=== PATIENT | male | born 1960 | race American Indian/Alaskan Native ===

== ENCOUNTER 2018-01-23 16:45 | Emergency (ER) | payer SELFPAY ==
[2018-01-23 17:02] VITALS: BP 163/110
--- NOTE | 2018-01-23 17:38 | XRay Report ---
FINAL REPORT PROCEDURE: XR CHEST ROUTINE 2V TECHNIQUE: PA and lateral chest radiographs were obtained. CPT 10609 HISTORY: Shortness of breath COMPARISON: No prior studies are available for comparison. FINDINGS: Heart: Normal. Mediastinum/Vessels: Normal. Lungs/Pleural space: Normal. Bony thorax: No acute osseous abnormality. Other: IMPRESSION: Normal examination.
[2018-01-23 17:58] LABS: Basophils # (Auto) 0.1 K/mm3 (0.0-0.1); Eosinophils # (Auto) 0.1 K/mm3 (0.0-0.4); Eosinophils % (Auto) 1.5 % (0.0-4.3); Hematocrit 50.6 % (35.5-45.6); Hemoglobin 17.3 gm/dl (11.8-15.2); Lymphocytes % (Auto) 14.6 % (13.4-35.0); Mean Corpuscular HGB Conc 34 % (32-34); Mean Corpuscular Hemoglobin 32 pg (28-32); Mean Corpuscular Volume 93 fl (84-94); Monocytes # (Auto) 0.6 K/mm3 (0.0-0.8); Monocytes % (Auto) 8.4 % (0.0-7.3); Platelet Count 285 K/mm3 (140-440); Red Blood Count 5.45 M/mm3 (3.65-5.03); Red Cell Distribution Width 13.6 % (13.2-15.2)
[2018-01-23 18:16] LABS: BUN/Creatinine Ratio 9; Blood Urea Nitrogen 10 mg/dL (9-20); Calcium 9.3 mg/dL (8.4-10.2); Hemolysis Index 4
== END 2018-01-23 17:36 ==
LOC: ED 16:45
DX: R07.9 Chest pain, unspecified (principal); Z53.21 Procedure and treatment not carried out due to patient leaving prior to being seen by health care provider
CPT/HCPCS: 36415; 71046; 80048; 84484; 85025; 93005; 93010

== ENCOUNTER 2018-06-21 16:00 | Inpatient (IN) | payer SELFPAY ==
[2018-06-21] MEDS ORDERED: ASPIRIN PO ONE (16:25)
[2018-06-21] MEDS ORDERED: MORPHINE IV ONE ×2 (17:24→19:33)
[2018-06-21] MEDS ORDERED: SOLU-Medrol IV ONE (17:24)
[2018-06-21 17:37] LABS: Basophils # (Auto) 0.1 K/mm3 (0.0-0.1); Basophils % (Auto) 1.1 % (0.0-1.8); Eosinophils # (Auto) 0.1 K/mm3 (0.0-0.4); Eosinophils % (Auto) 1.9 % (0.0-4.3); Hematocrit 47.6 % (35.5-45.6); Hemoglobin 15.8 gm/dl (11.8-15.2); Lymphocytes # (Auto) 1.4 K/mm3 (1.2-5.4); Mean Corpuscular HGB Conc 33 % (32-34); Mean Corpuscular Hemoglobin 31 pg (28-32); Mean Corpuscular Volume 94 fl (84-94); Monocytes # (Auto) 0.7 K/mm3 (0.0-0.8); Monocytes % (Auto) 11.3 % (0.0-7.3); Platelet Count 272 K/mm3 (140-440); Red Blood Count 5.07 M/mm3 (3.65-5.03); Red Cell Distribution Width 14.2 % (13.2-15.2)
[2018-06-21 17:43] LABS: INR 0.85 (0.87-1.13)
[2018-06-21 17:44] LABS: Partial Thromboplastin Time 24.9 Sec. (24.2-36.6)
[2018-06-21 17:51] LABS: BUN/Creatinine Ratio 11; Blood Urea Nitrogen 14 mg/dL (9-20); Calcium 9.3 mg/dL (8.4-10.2); Hemolysis Index 8
--- NOTE | 2018-06-21 18:38 | XRay Report ---
FINAL REPORT PROCEDURE: Chest. TECHNIQUE: PA and lateral views. HISTORY: Shortness of breath, chest pain. COMPARISON: Chest 01/23/2018. FINDINGS: The heart size is normal. There is mild tortuosity of the thoracic aorta. There is minimal opacity in the left costophrenic angle. This may represent some subsegmental atelectasis. The lungs are otherwise clear. The soft tissues are unremarkable. The regional skeleton appears intact. IMPRESSION: No significant abnormality.
--- NOTE | 2018-06-21 19:19 | Cat Scan Report ---
FINAL REPORT PROCEDURE: CT angiogram chest with contrast. TECHNIQUE: Computerized tomographic angiography of the chest was performed after the IV injection of iodinated nonionic contrast including image processing. The image data was postprocessed using 2-dimensional multiplanar reformatted (MPR) and 3-dimensional (MIP and/or volume rendered) techniques. HISTORY: Chest pain, shortness of breath. COMPARISON: No prior studies are available for comparison. FINDINGS: The trachea and central bronchi appear normal. There are a few cystic changes in both upper lobes, right worse than left. The lungs are otherwise clear. There are no signs of pneumonia. There are no definite pulmonary nodules. There are no pleural effusions. The thoracic aorta has a normal caliber without evidence of dissection. The pulmonary arteries enhance normally. There is no evidence of pulmonary embolism. There are a few small nonspecific mediastinal lymph nodes. The heart size is normal. The adrenal glands are not enlarged. There is a probable cyst in the upper pole of the left kidney. The thoracic skeleton appears intact. IMPRESSION: No significant abnormality identified.
[2018-06-21] MEDS ORDERED: LASIX IV ONE (19:20)
[2018-06-21] MEDS ORDERED: DUONEB *Not for PRN Use IH ONE (19:20)
[2018-06-21] MEDS ORDERED: LOPRESSOR IV ONE (19:33)
--- NOTE | 2018-06-21 19:33 | Emergency Department Report ---
ED Chest Pain HPI - General Chief Complaint: Chest Pain Stated Complaint: CHEST PAIN SOB Time Seen by Provider: 06/21/18 16:51 Source: patient Mode of arrival: Ambulatory Limitations: No Limitations - History of Present Illness Initial Comments: 58-year-old after an [place] male presents to the emergency department with complaint of a 4 day history of left-sided chest pain and shortness of breath. The shortness of breath has been the worst part of it and it worsens with exertion. The chest pain does radiate across his chest and down to the right arm. Both the pain and shortness of breath is also worse when he lays flat. He has a past mental history of CHF, hypertension, brain aneurysm with surgical repair in 2008 and he has a history of COPD. He uses oxygen intermittently but not around the clock. He is an occasional tobacco smoker but denies any illicit drug use. He does not currently have any primary care physician or claim auditor. He says it has been many years since he had a stress test. 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 He had a workup for some of these symptoms and a community emergency department in [place], yesterday, and he says that they wanted him transferred to a hospital in [place] for further workup but the patient refused and says that he wanted to come closer to home. He did not take anything for his symptoms prior to presentation today. Severity scale (0 -10): 3 - Related Data Home Medications Medication Instructions Recorded Confirmed Last Taken ALPRAZolam [Xanax TAB] 0.25 mg PO TID PRN 02/28/15 02/28/15 Unknown Gabapentin 100 mg PO TID 02/28/15 02/28/15 02/27/15 Previous Rx's Medication Instructions Recorded Last Taken Type HYDROcodone/APAP 5-325 [Ford 1 each PO Q6HR PRN #12 tablet 03/03/15 Unknown Rx 5/325] Metoprolol [Lopressor TAB] 50 mg PO BID #60 tablet 03/03/15 Unknown Rx Prednisone [Prednisone 5 mg (6-Day 5 mg PO .TAPER #1 tab.ds.pk 03/03/15 Unknown Rx Pack, 21 Tabs)] amLODIPine [Norvasc] 10 mg PO DAILY #30 tablet 03/03/15 Unknown Rx hydrALAZINE [Apresoline TAB] 25 mg PO Q8H #90 tab 03/03/15 Unknown Rx Allergies Allergy/AdvReac Type Severity Reaction Status Date / Time clonidine AdvReac Headache Verified 02/28/15 09:50 Heart Score - HEART Score History: Moderately suspicious EKG: Non-specific Age: 45-65 Risk factors: 1-2 risk factors Troponin: < normal limit HEART Score: 4 - Critical Actions Critical Actions: 4-6 pts:12-16.6% risk of adverse cardiac event. Should be admitted ED Review of Systems ROS: Stated complaint: CHEST PAIN SOB Other details as noted in HPI Comment: All other systems reviewed and negative Constitutional: denies: chills, fever Eyes: denies: eye pain, eye discharge, vision change ENT: denies: ear pain, throat pain Respiratory: orthopnea, shortness of breath, SOB with exertion Cardiovascular: chest pain. denies: palpitations Gastrointestinal: denies: abdominal pain, nausea, diarrhea Genitourinary: denies: urgency, dysuria Musculoskeletal: denies: back pain, joint swelling, arthralgia Skin: denies: rash, lesions Neurological: denies: headache, weakness, paresthesias ED Past Medical Hx - Past Medical History Hx Hypertension: Yes Hx Congestive Heart Failure: Yes Hx Diabetes: No Hx Sickle Cell Disease: No Hx Asthma: No Hx COPD: No Hx HIV: No - Surgical History Additional Surgical History: Brain surgery 2008 - Social History Smoking Status: Current Every Day Smoker Substance Use Type: None - Medications Home Medications: Home Medications Medication Instructions Recorded Confirmed Last Taken Type ALPRAZolam [Xanax TAB] 0.25 mg PO TID PRN 02/28/15 02/28/15 Unknown History Gabapentin 100 mg PO TID 02/28/15 02/28/15 02/27/15 History HYDROcodone/APAP 5-325 [Ford 1 each PO Q6HR PRN #12 tablet 03/03/15 Unknown Rx 5/325] Metoprolol [Lopressor TAB] 50 mg PO BID #60 tablet 03/03/15 Unknown Rx Prednisone [Prednisone 5 mg (6-Day 5 mg PO .TAPER #1 tab.ds.pk 03/03/15 Unknown Rx Pack, 21 Tabs)] amLODIPine [Norvasc] 10 mg PO DAILY #30 tablet 03/03/15 Unknown Rx hydrALAZINE [Apresoline TAB] 25 mg PO Q8H #90 tab 03/03/15 Unknown Rx ED Physical Exam - General Limitations: No Limitations ED Course Vital Signs 06/21/18 06/21/18 06/21/18 16:19 16:24 17:44 Temperature 97.9 F Pulse Rate 84 Respiratory 24 22 Rate Blood Pressure 175/119 Blood Pressure 114/90 [Right] O2 Sat by Pulse 99 Oximetry JUJU score - Juju Score Age > 65: (0) No Aspirin use within the Past 7 Days: (0) No 3 or more CAD Risk Factors: (1) Yes 2 or more Angina events in past 24 hrs: (1) Yes Known CAD with more than 50% Stenosis: (0) No Elevated Cardiac Markers: (0) No ST Deviation Greater than 0.5mm: (0) No JUJU Score: 2 ED Medical Decision Making - Lab Data Result diagrams: 06/21/18 16:34 06/21/18 16:34 - EKG Data -: EKG Interpreted by Me EKG shows normal: sinus rhythm, axis (left axis deviation), intervals, QRS complexes (Q waves to the anterior and inferior leads, LVH, left anterior fascicular block), ST-T waves (T-wave inversions to the lateral leads) Rate: normal - EKG Data When compared to previous EKG there are: no significant change Interpretation: unchanged when compared t (01/23/18) - Radiology Data Radiology results: report reviewed, image reviewed interpreted by me: Chest x-ray does not show any acute process. There are no pleural effusions, obvious pneumonia and there is no pneumothorax. PROCEDURE: CT angiogram chest with contrast. TECHNIQUE: Computerized tomographic angiography of the chest was performed after the IV injection of iodinated nonionic contrast including image processing. The image data was postprocessed using 2-dimensional multiplanar reformatted (MPR) and 3-dimensional (MIP and/or volume rendered) techniques. HISTORY: Chest pain, shortness of breath. COMPARISON: No prior studies are available for comparison. FINDINGS: The trachea and central bronchi appear normal. There are a few cystic changes in both upper lobes, right worse than left. The lungs are otherwise clear. There are no signs of pneumonia. There are no definite pulmonary nodules. There are no pleural effusions. The thoracic aorta has a normal caliber without evidence of dissection. The pulmonary arteries enhance normally. There is no evidence of pulmonary embolism. There are a few small nonspecific mediastinal lymph nodes. The heart size is normal. The adrenal glands are not enlarged. There is a probable cyst in the upper pole of the left kidney. The thoracic skeleton appears intact. IMPRESSION: No significant abnormality identified. Transcribed By: MRM Dictated By: MARYANNE SHORE MD Electronically Authenticated By: MARYANNE SHORE MD Signed Date/Time: 06/21/181917 - Medical Decision Making Patient has continued chest discomfort and shortness of breath. He has a BNP greater than 2500. No significant pleural effusion. CT angiography did not show any PE, dissection. It is been a few years since the patient had a stress test. He will be admitted to the hospital for further evaluation and treatment was excepted for admission by the hospitalist, Dr. Rosado. - Differential Diagnosis ND, PE, COPD, CHF Critical Care Time: No Critical care attestation.: If time is entered above; I have spent that time in minutes in the direct care of this critically ill patient, excluding procedure time. ED Disposition Clinical Impression: Acute chest pain Dyspnea Qualifiers: Dyspnea type: shortness of breath Qualified Code(s): R06.02 - Shortness of breath; R06.00 - Dyspnea, unspecified; R06.01 - Orthopnea Hypertension Qualifiers: Hypertension type: essential hypertension Qualified Code(s): I10 - Essential ( primary) hypertension Congestive heart failure Qualifiers: Heart failure type: unspecified Heart failure chronicity: acute on chronic Qualified Code(s): I50.9 - Heart failure, unspecified Disposition: OP ADMIT IP TO THIS HOSP Is pt being admited?: Yes Condition: Fair Instructions: Chest Pain (ED), Hypertension (ED) Referrals: PRIMARY CARE, [Primary Care Provider] - 3-5 Days Time of Disposition: 19:37
--- NOTE | 2018-06-21 21:21 | Cat Scan Report ---
FINAL REPORT PROCEDURE: CT head without contrast. TECHNIQUE: Computerized tomography of the head was performed without contrast material. HISTORY: Headache. COMPARISON: No prior studies are available for comparison. FINDINGS: The ventricles are normal in size. The crowder matter and white matter appear normal. There are no mass lesions. There is no intracranial hemorrhage. There is a metallic stent and a focal mass of metallic density near the foramen magnum. This may represent previous embolization of an aneurysm. Clinical correlation is recommended. The calvarium appears intact. The mastoid air cells and visualized paranasal sinuses are clear. IMPRESSION: No evidence of acute disease. Probable previous embolization procedure.
[2018-06-21] MEDS ORDERED: APRESOLINE IV ONE (22:40)
[2018-06-21] MEDS ORDERED: ZOFRAN IV PRN (23:01)
[2018-06-21] MEDS ORDERED: TYLENOL PO PRN (23:01)
[2018-06-21] MEDS ORDERED: SODIUM CHLORIDE FLUSH SYRINGE 10 ML IV PRN (23:01)
--- NOTE | 2018-06-21 23:08 | Event Note ---
Date: 06/21/18 See dictated history and physical in the reports Chest pain rule out [place] Hypertension
[2018-06-21] MEDS ORDERED: HABITROL TD ONE (23:15)
[2018-06-21] MEDS ORDERED: LOPRESSOR ONE (23:27)
[2018-06-21] MEDS ORDERED: APRESOLINE ONE (23:28)
[2018-06-21] MEDS: XANAX PO PRN (23:32)
--- NOTE | 2018-06-21 23:32 | History and Physical Report ---
CHIEF COMPLAINT: Chest pain for 4 days. HISTORY OF PRESENT ILLNESS: A 58-year-old male with a history of hypertension, presents to the Emergency Room for 4 days of left chest pain and shortness. Shortness of breath is recent and worsens with exertion. Chest pain radiates across his chest to the right arm. No diaphoresis, no palpitations. The patient has COPD and uses oxygen intermittently. The patient is also a smoker. 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 He wants a workup for these symptoms. The patient does not have a salmon gillnet vessel operator or PCP. Exacerbating factor is exertion. Relieving factor is rest. PAST MEDICAL HISTORY: As mentioned, significant for hypertension and congestive heart failure and COPD. PAST SURGICAL HISTORY: Aneurysm surgery in 2008. SOCIAL HISTORY: Current everyday smoker. FAMILY HISTORY: Hypertension. CURRENT MEDICATIONS: Metoprolol 50 mg twice a day, amlodipine 10 mg once a day, alprazolam 0.25 three times a day, and gabapentin 100 mg 3 times a day. REVIEW OF SYSTEMS: Significant for left-sided chest pain of 4 days' duration and shortness of breath of 4 days' duration. Otherwise, review of systems negative. PHYSICAL EXAMINATION: GENERAL: On examination, a middle-aged male, obese, cooperative during examination. VITAL SIGNS: Blood pressure is 169/111 and 178/101, temperature is 98, pulse is 85, and respirations are 16. HEENT: Unremarkable. Pupils are equal and reactive. NECK: Supple, no lymphadenopathy, no thyromegaly. LUNGS: Scattered rhonchi bilaterally. CARDIOVASCULAR: S1, S2 heard. No gallop, no murmur, no rub. Apical impulse in left fifth intercostal space and midclavicular line. ABDOMEN: Soft and benign. No hepatosplenomegaly. No guarding, no rigidity. Hernial orifices are normal. EXTREMITIES: Good pedal pulses. No pedal edema. CENTRAL NERVOUS SYSTEM: Alert and oriented x 4, nonfocal exam. SKIN: Normal. LABORATORY DATA: Significant for a white count of 6100, H and H are 15.8 and 47.6, and platelet count is 272,000. BNP is 2708. Electrolytes are normal. EKG shows sinus rhythm, left anterior fascicular block, left ventricular hypertrophy. Heart rate of 86 per minute. The chest x-ray shows no significant abnormality. CT angiogram does not show any significant abnormality. ASSESSMENT AND PLAN: 1. Chest pain, rule out myocardial infarction, chest pain protocol. 2. Congestive heart failure, new onset. I will get echocardiogram to get the ejection fraction. The patient's shortness of breath may also be due to obesity. 3. Hypertension. Continue metoprolol and amlodipine. Add losartan because of uncontrolled blood pressure. The patient is also hydralazine. Continue the same. 4. Peripheral neuropathy. Continue gabapentin 100 mg 3 times a day. 5. Generalized anxiety disorder. Continue Xanax. 6. Nicotine dependence. Nicoderm patch ordered. 7. Deep venous thrombosis prophylaxis, Lovenox 40 mg subcutaneous daily ordered. JOB# [id number] GIOVANNI/NTS
[2018-06-21] MEDS: APRESOLINE PO SCH (23:33)
[2018-06-21] MEDS ORDERED: XANAX ONE (23:33)
[2018-06-21] MEDS: PERCOCET 5/325 PO PRN (23:33)
[2018-06-21] MEDS: LOPRESSOR PO SCH (23:33)
[2018-06-21] MEDS ORDERED: PERCOCET 5/325 ONE (23:33)
[2018-06-22] MEDS: MORPHINE IV PRN ×4 (03:19→18:04)
[2018-06-22] MEDS: PERCOCET 5/325 PO PRN ×3 (05:55→21:31)
[2018-06-22] MEDS: APRESOLINE PO SCH ×3 (05:56→21:29)
[2018-06-22 06:53] LABS: Basophils % (Auto) 0.2 % (0.0-1.8); Eosinophils % (Auto) 0.1 % (0.0-4.3); Hematocrit 49.5 % (35.5-45.6); Hemoglobin 16.5 gm/dl (11.8-15.2); Lymphocytes # (Auto) 0.4 K/mm3 (1.2-5.4); Lymphocytes % (Auto) 8.8 % (13.4-35.0); Mean Corpuscular HGB Conc 33 % (32-34); Mean Corpuscular Hemoglobin 31 pg (28-32); Mean Corpuscular Volume 94 fl (84-94); Monocytes # (Auto) 0.1 K/mm3 (0.0-0.8); Monocytes % (Auto) 2.1 % (0.0-7.3); Platelet Count 278 K/mm3 (140-440); Red Blood Count 5.27 M/mm3 (3.65-5.03); Red Cell Distribution Width 14.6 % (13.2-15.2)
[2018-06-22 07:21] LABS: Alanine Aminotransferase 27 units/L (7-56); BUN/Creatinine Ratio 16; Blood Urea Nitrogen 19 mg/dL (9-20); Calcium 9.4 mg/dL (8.4-10.2); Hemolysis Index 30
[2018-06-22] MEDS ORDERED: LEXISCAN IV ONE ×2 (08:28→08:29)
[2018-06-22] MEDS: LOPRESSOR PO SCH ×2 (10:18→21:30)
[2018-06-22] MEDS: NORVASC PO SCH (10:18)
[2018-06-22] MEDS: NEURONTIN PO SCH ×3 (10:19→21:29)
[2018-06-22] MEDS: COZAAR PO SCH (10:19)
[2018-06-22] MEDS: PEPCID PO SCH ×2 (10:19→21:29)
[2018-06-22] MEDS: LOVENOX SUB-Q SCH (10:20)
[2018-06-22] MEDS: XANAX PO PRN ×2 (11:49→21:29)
--- NOTE | 2018-06-22 16:15 | Progress Note ---
Assessment and Plan - Patient Problems (1) Acute chest pain Current Visit: Yes Status: Acute Plan to address problem: For Lesisccan (2) Acute systolic heart failure Current Visit: Yes Status: Acute Plan to address problem: IV lasix ECHO (3) COPD exacerbation Current Visit: Yes Status: Acute Plan to address problem: Cont Duonebs Solumedrol and IV levaquin (4) HTN (hypertension) Current Visit: Yes Status: Chronic Qualifiers: Hypertension type: essential hypertension Qualified Code(s): I10 - Essential (primary) hypertension Plan to address problem: Cont antihypertensives (5) Sleep apnea Current Visit: Yes Status: Chronic Qualifiers: Sleep apnea type: unspecified type Qualified Code(s): G47.30 - Sleep apnea , unspecified Plan to address problem: CPAP prn (6) DVT prophylaxis Current Visit: Yes Status: Acute Plan to address problem: on Lovenox Subjective Date of service: 06/22/18 Principal diagnosis: CHF exacerbation and Chest pain Interval history: Sx better Objective - Constitutional Vitals: Vital Signs - 12hr 06/22/18 06/22/18 06/22/18 04:36 05:55 05:56 Temperature 97.2 F L Pulse Rate 62 62 Respiratory 18 20 Rate Blood Pressure 152/96 152/96 Blood Pressure [Right] O2 Sat by Pulse 98 Oximetry 06/22/18 06/22/18 06/22/18 06:55 07:19 07:49 Temperature Pulse Rate Respiratory 20 20 20 Rate Blood Pressure Blood Pressure [Right] O2 Sat by Pulse Oximetry 06/22/18 06/22/18 06/22/18 08:17 10:00 11:36 Temperature 97.9 F 97.9 F Pulse Rate 60 71 69 Respiratory 20 20 Rate Blood Pressure 180/110 Blood Pressure 124/64 [Right] O2 Sat by Pulse 99 92 Oximetry General appearance: Present: mild distress, well-nourished - EENT Eyes: PERRL, EOM intact ENT: hearing intact, clear oral mucosa Ears: bilateral: normal - Neck Neck: supple, normal ROM - Respiratory Respiratory effort: normal Respiratory: bilateral: CTA, diminished, rhonchi - Breasts Breasts: normal - Cardiovascular Heart rate: 78 Rhythm: regular Heart Sounds: Present: S1 & S2. Absent: gallop, rub Extremities: no ischemia, pulses intact, No edema, normal color, Full ROM - Gastrointestinal General gastrointestinal: Present: soft, non-tender, non-distended, normal bowel sounds - Genitourinary Male genitourinary: normal - Integumentary Integumentary: clear, warm, dry - Musculoskeletal Musculoskeletal: 1, strength equal bilaterally - Neurologic Neurologic: moves all extremities - Psychiatric Psychiatric: memory intact, appropriate mood/affect, intact judgment & insight - Labs CBC & Chem 7: 06/22/18 05:30 06/22/18 05:30 Labs: Abnormal lab results 06/21/18 06/21/18 06/21/18 Range/Units 16:34 17:02 17:33 RBC 5.07 H (3.65-5.03) M/mm3 Hgb 15.8 H (11.8-15.2) gm/dl Hct 47.6 H (35.5-45.6) % Lymph % (Auto) (13.4-35.0) % [place] % (Auto) 11.3 H (0.0-7.3) % Lymph # (1.2-5.4) K/mm3 Seg Neutrophils % (40.0-70.0) % PT 12.0 L (12.2-14.9) Sec. INR 0.85 L (0.87-1.13) Glucose (75-100) mg/dL NT-Pro-B Natriuret Pep 2708 H (0-900) pg/mL 06/22/18 06/22/18 Range/Units 05:30 05:30 RBC 5.27 H (3.65-5.03) M/mm3 Hgb 16.5 H (11.8-15.2) gm/dl Hct 49.5 H (35.5-45.6) % Lymph % (Auto) 8.8 L (13.4-35.0) % [place] % (Auto) (0.0-7.3) % Lymph # 0.4 L (1.2-5.4) K/mm3 Seg Neutrophils % 88.8 H (40.0-70.0) % PT (12.2-14.9) Sec. INR (0.87-1.13) Glucose 147 H (75-100) mg/dL NT-Pro-B Natriuret Pep (0-900) pg/mL - Imaging and cardiology EKG: report reviewed
[2018-06-22] MEDS: SODIUM CHLORIDE FLUSH SYRINGE 10 ML IV SCH ×2 (16:37→21:32)
[2018-06-22] MEDS ORDERED: DUONEB *Not for PRN Use IH ONE (18:03)
[2018-06-22] MEDS: DILAUDID IV SCH (23:48)
[2018-06-22] MEDS: COLACE PO SCH (23:49)
[2018-06-23] MEDS: MORPHINE IV PRN ×4 (03:24→20:56)
[2018-06-23] MEDS: DILAUDID IV SCH ×4 (05:39→23:50)
[2018-06-23] MEDS: APRESOLINE PO SCH ×3 (05:40→23:53)
[2018-06-23] MEDS: XANAX PO PRN ×2 (05:40→13:45)
[2018-06-23] MEDS: NEURONTIN PO SCH ×3 (09:17→20:58)
[2018-06-23] MEDS: COLACE PO SCH (09:17)
[2018-06-23] MEDS ORDERED: LEXISCAN IV ONE ×2 (10:15)
[2018-06-23] MEDS: NORVASC PO SCH (10:48)
[2018-06-23] MEDS: COZAAR PO SCH (10:50)
[2018-06-23] MEDS: SODIUM CHLORIDE FLUSH SYRINGE 10 ML IV SCH (10:58)
[2018-06-23] MEDS: PEPCID PO SCH ×2 (13:45→23:53)
[2018-06-23] MEDS: LOVENOX SUB-Q SCH (13:46)
[2018-06-23] MEDS: LOPRESSOR PO SCH (13:51)
--- NOTE | 2018-06-23 14:20 | Consultation ---
History of Present Illness Consult date: 06/23/18 Requesting physician: NILSA GONZALEZ Consult reason: congestive heart failure History of present illness: The pt is a 58 YO male with a past medical history significant for HTN, HF, COPD requiring home O2, suspected KARL, brain aneurysm with surgical repair ( coiling) in 2008. He has been seen by our practice on prior hospitalizations but has admittedly not been compliant with OP follow up due to insurance issues. He presented with complaints of progressively worsening SOB, KNIGHT, wheezing and chest pain for 1 week prior to arrival. He describes his chest pain as an intermittent, left-sided pressure which radiates down his right arm. 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 He had a workup for some of these symptoms and a community emergency department in [place] a few days ago and he says that they wanted him transferred to a hospital in [place] for further workup but the patient refused and says that he wanted to come closer to home. He underwent lexiscan MPI stress test this AM which was equivocal for mild lateral wall ischemia, EF 29%. He also had echo done yesterday which showed EF 30-35%, LV mild to mod dilated, mod LVH, LA mild to mod dilated, right heart chambers mildly dilated, trace-mild TR, RVSP 30mmHg. Review of [place] records reveals that pt underwent LHC in 05/2015 which showed normal coronaries and normal LV function. He underwent echo in 02/2018 which showed EF 50%, grade 2 diastolic dysfunction, trace MVR. Past History Past Medical History: COPD, heart failure, hypertension, other (brain aneurysm with surgical repair (coiling) in 2008; suspected KARL) Social history: smoking (former). denies: alcohol abuse, prescription drug abuse Medications and Allergies Allergies Allergy/AdvReac Type Severity Reaction Status Date / Time clonidine AdvReac Headache Verified 02/28/15 09:50 Home Medications Medication Instructions Recorded Confirmed Last Taken Type ALPRAZolam [Xanax TAB] 0.25 mg PO TID PRN 02/28/15 06/22/18 Unknown History Gabapentin 200 mg PO TID 02/28/15 06/22/18 02/27/15 History hydrALAZINE [Apresoline TAB] 25 mg PO Q8H #90 tab 03/03/15 06/21/18 Unknown Rx Plavix 75 mg PO DAILY 06/21/18 06/22/18 06/19/18 08:00 History Aspirin [Aspirin BABY CHEW TAB] 81 mg PO QDAY 06/22/18 06/22/18 Unknown History Atorvastatin Calcium [Lipitor] 20 mg PO DAILY 06/22/18 06/22/18 Unknown History Furosemide [Lasix] 20 mg PO DAILY 06/22/18 06/22/18 Unknown History Potassium Chloride [Klor-Con] 20 meq PO DAILY 06/22/18 06/22/18 Unknown History Active Meds: Active Medications Acetaminophen (Tylenol) 650 mg PO Q4H PRN PRN Reason: Pain MILD(1-3)/Fever >100.5/RODRIGEZ Alprazolam (Xanax) 0.25 mg PO TID PRN PRN Reason: Anxiety Last Admin: 06/23/18 13:45 Dose: 0.25 mg Amlodipine Besylate (Norvasc) 10 mg PO DAILY [facility] Last Admin: 06/23/18 10:48 Dose: Not Given Docusate Sodium (Colace) 100 mg PO BID [facility] Last Admin: 06/23/18 09:17 Dose: Not Given Enoxaparin Sodium (Lovenox) 40 mg SUB-Q QDAY [facility] Last Admin: 06/23/18 13:46 Dose: 40 mg Famotidine (Pepcid) 20 mg PO BID [facility] Last Admin: 06/23/18 13:45 Dose: 20 mg Gabapentin (Neurontin) 100 mg PO TID [facility] Last Admin: 06/23/18 13:52 Dose: 100 mg Hydralazine HCl (Apresoline) 25 mg PO Q8HR [facility] Last Admin: 06/23/18 13:47 Dose: 25 mg Hydromorphone HCl (Dilaudid) 0.5 mg IV Q6H [facility] Last Admin: 06/23/18 11:05 Dose: Not Given Losartan Potassium (Cozaar) 100 mg PO QDAY [facility] Last Admin: 06/23/18 10:50 Dose: Not Given Metoprolol Tartrate (Lopressor) 50 mg PO BID [facility] Last Admin: 06/23/18 13:51 Dose: 50 mg Morphine Sulfate (Morphine) 2 mg IV Q4H PRN PRN Reason: Pain, Moderate (4-6) Last Admin: 06/23/18 09:55 Dose: 2 mg Ondansetron HCl (Zofran) 4 mg IV Q8H PRN PRN Reason: Nausea And Vomiting Last Admin: 06/22/18 14:13 Dose: 4 mg Oxycodone/Acetaminophen (Percocet 5/325) 1 tab PO Q6H PRN PRN Reason: Pain, Moderate (4-6) Last Admin: 06/22/18 21:31 Dose: 1 tab Sodium Chloride (Sodium Chloride Flush Syringe 10 Ml) 10 ml IV BID CELESTE Last Admin: 06/23/18 10:58 Dose: Not Given Sodium Chloride (Sodium Chloride Flush Syringe 10 Ml) 10 ml IV PRN PRN PRN Reason: LINE FLUSH Review of Systems Constitutional: no weight loss, no weight gain, no fever, no chills, no sweats Ears, nose, mouth and throat: no ear pain, no nose pain, no sinus pressure, no sinus pain Cardiovascular: chest pain, orthopnea, edema (BLE), shortness of breath, dyspnea on exertion, paroxysmal nocturnal dyspnea, high blood pressure, leg edema (BLE), decreased exercise tolerance, no palpitations, no rapid/irregular heart beat, no syncope, no lightheadedness Respiratory: cough, shortness of breath, dyspnea on exertion, wheezing, no congestion, no pain on inspiration Gastrointestinal: no abdominal pain, no nausea, no vomiting, no diarrhea, no constipation, no change in bowel habits Genitourinary Male: no dysuria, no hematuria, no flank pain, no discharge, no urinary frequency, no urinary hesitancy Musculoskeletal: no neck stiffness, no neck pain Integumentary: no rash, no pruritis, no redness, no sores, no wounds Neurological: no head injury, no paralysis Psychiatric: anxiety Endocrine: no cold intolerance, no heat intolerance Hematologic/Lymphatic: no easy bruising, no easy bleeding Allergic/Immunologic: wheezing, no urticaria Physical Examination Vital Signs Temp Pulse Resp BP Pulse Ox 97.9 F 84 24 175/119 99 06/21/18 16:19 06/21/18 16:19 06/21/18 16:19 06/21/18 16:19 06/21/18 16:19 General appearance: no acute distress HEENT: Positive: PERRL Neck: Positive: neck supple, trachea midline Cardiac: Positive: Reg Rate and Rhythm, S1/S2 Lungs: Positive: Decreased Breath Sounds, Wheezes, Oxygen Neuro: Positive: Grossly Intact Abdomen: Positive: Soft. Negative: Tender Skin: Positive: Clear. Negative: Rash, Wound Musculoskeletal: No Fluid Collection, No Pain, Normal Range of Motion Extremities: Absent: edema Results 06/22/18 05:30 06/22/18 05:30 - Imaging and Cardiology Echo: report reviewed (EF 30-35%, LV mild to mod dilated, mod LVH, LA mild to mod dilated, right heart chambers mildly dilated, trace-mild TR, RVSP 30mmHg. ) Cardiac cath: report reviewed ([facility] in 05/2015 which showed normal coronaries and normal LV function) EKG: report reviewed, image reviewed EKG interpretations - Telemetry EKG Rhythm: Sinus Rhythm - EKG Sinus rhythms and dysrhythmias: sinus rhythm Assessment and Plan Pt has had significant reduction in EF since 02/2018 - was 50% in February and is now 30-35%. He underwent stress testing today which was equivocal for mild lateral wall ischemia, EF 29%. He continues to complain of chest pain and severe dyspnea. Coronary angiography may be warranted if symptoms persist despite optimal medical therapy. Will optimize cardiac regimen. Recommend pulmonary consultation per primary. Assessment and plan reviewed with pt at bedside. The patient has been seen in conjunction with Dr. Hilliard who agrees with the assessment and plan of care. - Patient Problems (1) Acute systolic heart failure Current Visit: Yes Status: Acute (2) Cardiomyopathy Current Visit: Yes Status: Chronic (3) Chest pain Current Visit: No Status: Acute (4) COPD exacerbation Current Visit: Yes Status: Acute (5) Hypertension Current Visit: Yes Status: Chronic Qualifiers: Hypertension type: essential hypertension Qualified Code(s): I10 - Essential (primary) hypertension (6) Sleep apnea Current Visit: Yes Status: Suspected (7) History of cerebral aneurysm repair Current Visit: Yes Status: Chronic
[2018-06-23] MEDS ORDERED: DUONEB *Not for PRN Use IH ONE (14:39)
[2018-06-23] MEDS ORDERED: IMDUR PO SCH (15:00)
[2018-06-23] MEDS ORDERED: LASIX IV SCH (15:00)
--- NOTE | 2018-06-23 17:19 | Progress Note ---
Assessment and Plan - Patient Problems (1) Acute chest pain Current Visit: Yes Status: Acute Plan to address problem: Lexiscan negative (2) Acute systolic heart failure Current Visit: Yes Status: Acute Plan to address problem: IV lasix ECHO -EF 30 percent (3) COPD exacerbation Current Visit: Yes Status: Acute Plan to address problem: Cont Duonebs Solumedrol and IV levaquin (4) HTN (hypertension) Current Visit: Yes Status: Chronic Qualifiers: Hypertension type: essential hypertension Qualified Code(s): I10 - Essential (primary) hypertension Plan to address problem: Cont antihypertensives (5) Sleep apnea Current Visit: Yes Status: Chronic Qualifiers: Sleep apnea type: unspecified type Qualified Code(s): G47.30 - Sleep apnea , unspecified Plan to address problem: CPAP prn pulmonary consult requested (6) DVT prophylaxis Current Visit: Yes Status: Acute Plan to address problem: on Lovenox Subjective Date of service: 06/23/18 Principal diagnosis: CHF exacerbation and Chest pain Interval history: Sx better Objective - Constitutional Vitals: Vital Signs - 12hr 06/23/18 06/23/18 06/23/18 05:19 05:31 05:40 Temperature 97.6 F 98.5 F Pulse Rate 66 66 66 Respiratory 20 20 Rate Blood Pressure 127/96 142/93 142/93 Blood Pressure [Right] O2 Sat by Pulse 94 98 Oximetry 06/23/18 06/23/18 06/23/18 07:52 09:55 10:25 Temperature 97.9 F Pulse Rate 67 Respiratory 20 20 20 Rate Blood Pressure Blood Pressure 130/96 [Right] O2 Sat by Pulse 96 Oximetry 06/23/18 06/23/18 06/23/18 10:33 10:58 10:59 Temperature Pulse Rate 59 L 76 86 Respiratory Rate Blood Pressure 128/97 128/97 127/96 Blood Pressure [Right] O2 Sat by Pulse Oximetry 06/23/18 06/23/18 06/23/18 11:00 11:01 11:02 Temperature Pulse Rate 84 81 81 Respiratory Rate Blood Pressure 126/90 126/90 141/93 Blood Pressure [Right] O2 Sat by Pulse Oximetry 06/23/18 06/23/18 06/23/18 11:03 13:26 15:29 Temperature 97.9 F Pulse Rate 75 72 Respiratory 20 20 Rate Blood Pressure 128/97 146/88 Blood Pressure [Right] O2 Sat by Pulse 93 Oximetry 06/23/18 06/23/18 16:31 16:53 Temperature 98.2 F Pulse Rate 64 Respiratory 20 20 Rate Blood Pressure 127/99 Blood Pressure [Right] O2 Sat by Pulse 93 Oximetry General appearance: Present: no acute distress, well-nourished - EENT Eyes: PERRL, EOM intact ENT: hearing intact, clear oral mucosa Ears: bilateral: normal - Neck Neck: supple, normal ROM - Respiratory Respiratory effort: normal Respiratory: bilateral: CTA - Breasts Breasts: normal - Cardiovascular Rhythm: regular Heart Sounds: Present: S1 & S2. Absent: gallop, rub Extremities: pulses intact, No edema, normal color, Full ROM - Gastrointestinal General gastrointestinal: Present: soft, non-tender, non-distended, normal bowel sounds - Genitourinary Male genitourinary: normal - Integumentary Integumentary: clear, warm, dry - Musculoskeletal Musculoskeletal: 1, strength equal bilaterally - Neurologic Neurologic: moves all extremities - Psychiatric Psychiatric: memory intact, appropriate mood/affect, intact judgment & insight - Labs CBC & Chem 7: 06/22/18 05:30 06/22/18 05:30
[2018-06-23] MEDS ORDERED: SOLU-Medrol IV SCH (18:00)
[2018-06-23] MEDS ORDERED: LEVAQUIN 750MG/150ML 750 MG/150 ML BAG IV SCH (18:00)
[2018-06-23] MEDS: SOLU-Medrol IV SCH ×2 (18:44→23:53)
[2018-06-23] MEDS: PERCOCET 5/325 PO PRN (19:02)
[2018-06-23] MEDS ORDERED: DUONEB *Not for PRN Use IH SCH (20:00)
[2018-06-23 21:08] VITALS: BP 117/72
[2018-06-24] MEDS: COLACE PO SCH
[2018-06-24] MEDS: SODIUM CHLORIDE FLUSH SYRINGE 10 ML IV SCH (00:01)
[2018-06-24] MEDS: LOPRESSOR PO SCH (00:02)
--- NOTE | 2018-06-24 00:36 | Treadmill Report ---
MYOCARDIAL PERFUSION IMAGING STUDIES Resting technetium scan revealed increased gut uptake. The patient was re-injected today as yesterday similar gut uptake was noted. On post-Lexiscan, there is a slightly diminished uptake of radioisotope activity noted in lateral wall in horizontal axis, but not in short axis. Again, the radioisotope activity is heterogeneous because of artifact. On gated scan, ejection fraction noted to be diminished at 29%. Diffuse hypokinesis was noted. IMPRESSION: 1. Dilated cardiomyopathy. 2. Equivocal for lateral wall ischemia. 3. If clinically warranted, the patient may need further testing for his cardiomyopathy. JOB# [id number] FADIA/MICHELLE
--- NOTE | 2018-06-24 15:50 | Discharge Summary ---
Providers - Providers Date of Admission: 06/21/18 23:01 Date of discharge: 06/24/18 Attending physician: NILSA GONZALEZ 06/23/18 17:34 Consult to Physician [CONS] Routine Comment: Consulting Provider: GEORGE GRANT Physician Instructions: Reason For Exam: copd exacerbation Primary care physician: CAT SITTER Hospitalization Condition: Fair Hospital course: Assessment and Plan - Patient Problems (1) Acute chest pain Current Visit: Yes Status: Acute Plan to address problem: Lexiscan negative (2) Acute systolic heart failure Current Visit: Yes Status: Acute Plan to address problem: IV lasix ECHO -EF 30 percent (3) COPD exacerbation Current Visit: Yes Status: Acute Plan to address problem: Cont Duonebs Solumedrol and IV levaquin (4) HTN (hypertension) Current Visit: Yes Status: Chronic Qualifiers: Hypertension type: essential hypertension Qualified Code(s): I10 - Essential (primary) hypertension Plan to address problem: Cont antihypertensives (5) Sleep apnea Current Visit: Yes Status: Chronic Qualifiers: Sleep apnea type: unspecified type Qualified Code(s): G47.30 - Sleep apnea , unspecified Plan to address problem: CPAP prn pulmonary consult requested Patient signed AMA Disposition: DC-07 LEFT AGAINST MED ADVICE Core Measure Documentation - Palliative Care Palliative Care/ Comfort Measures: Not Applicable - Core Measures Any of the following diagnoses?: none Exam - Constitutional Vitals: Temp Pulse Resp BP Pulse Ox 97.4 F L 63 18 117/72 100 06/23/18 20:10 06/23/18 21:04 06/23/18 21:04 06/23/18 23:53 06/23/18 20:53 Plan Activity: no restrictions Diet: low cholesterol, low salt Follow up with: PRIMARY CARE, [Primary Care Provider] - 3-5 Days
== END 2018-06-24 00:10 | disposition left against medical advice (07) | DRG 313 ==
LOC: ED 16:00 → 4A 23:01
PROVIDERS: ADMIT Internal Medicine; ATTEND Internal Medicine
DX: R07.9 Chest pain, unspecified (principal); I50.23 Acute on chronic systolic (congestive) heart failure; J44.1 Chronic obstructive pulmonary disease with (acute) exacerbation; I42.9 Cardiomyopathy, unspecified; I11.0 Hypertensive heart disease with heart failure; F41.1 Generalized anxiety disorder; Z53.21 Procedure and treatment not carried out due to patient leaving prior to being seen by health care provider; G62.9 Polyneuropathy, unspecified; G47.30 Sleep apnea, unspecified; F17.200 Nicotine dependence, unspecified, uncomplicated; Z82.49 Family history of ischemic heart disease and other diseases of the circulatory system; Z88.6 Allergy status to analgesic agent
CPT/HCPCS: 36415; 70450; 71046; 71275; 78452; 80048; 80053; 83036; 83880; 84484; 85025; 85610; 85730; 93005; 93010; 93017; 93306; 94640; 94760; 96374; 99406; A9502; J1170; J1650; J1940; J1956; J2270; J2405; J2785; J2920; J2930; Q9967